=== PATIENT | male | born 1980 | race Hispanic/Latino ===

== ENCOUNTER 2017-06-27 20:08 | Emergency (ER) | payer OTHER, SELFPAY ==
[~2017-06-27 20:08] MED LIST: ISOVUE-370 76%-LOCM 1 ML ONE
[2017-06-27 20:30] LABS: #Basophils 0.1 thou/uL (0.0-0.2); #Eosinphils 0.1 thou/uL (0.0-0.7); #Lymphocytes 2.6 thou/uL (1.20-3.40); #Monocytes 0.3 thou/uL (0.11-0.59); #Neutrophils 4.8 thou/uL (1.40-6.50); %Basophils 1.1 % (0.0-1.0); %Eosinophils 1.8 % (0.0-10.0); %Lymphocytes 33.1 % (21.0-51.0); %Monocytes 4.1 % (0.0-10.0); Mean Platelet Volume 8.7 fL (7.4-10.4); Red Blood Cell (RBC) Count 4.91 mill/uL (4.70-6.10)
[2017-06-27] MEDS ORDERED: Ondansetron HCl/PF 4 MG/2 ML Vial ONE (20:36)
[2017-06-27 20:53] LABS: ALT (SGPT) 18 U/L (8-55); AST (SGOT) 17 U/L (5-34); Alkaline Phosphatase 87 U/L (40-150); Anion Gap 15 mmol/L (10-20); BUN (Urea Nitrogen) 15 mg/dL (8.9-20.6); Bilirubin, Total 0.5 mg/dL (0.2-1.2); Calc. Creatinine Clearance 0 mL/min (70-130); Carbon Dioxide 25 mmol/L (22-29); Chloride 103 mmol/L (98-107); Estimated GFR-MDRD Greater than 90; Globulin 3.7 g/dL (2.4-3.5); Protein, Total 8.5 g/dL (6.0-8.3)
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
[2017-06-27] MEDS ORDERED: Ketorolac Tromethamine 30 MG/ML VIAL ONE (22:57)
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
== END 2017-06-27 23:03 | disposition home or self-care (01) ==
LOC: ERS 20:08
DX: S80.812A Abrasion, left lower leg, initial encounter (principal); F17.210 Nicotine dependence, cigarettes, uncomplicated; V53.5XXA Driver of pick-up truck or van injured in collision with car, pick-up truck or van in traffic accident, initial encounter
CPT/HCPCS: 70450; 71260; 72125; 74177; 80053; 85025; 96374; J1885; J2405

== ENCOUNTER 2018-04-18 03:47 | Emergency (ER) | payer SELFPAY ==
[2018-04-18] MEDS ORDERED: Cyclobenzaprine 10 MG TAB ONE (04:41)
[2018-04-18] MEDS ORDERED: Ibuprofen 800 MG TAB ONE (04:41)
== END 2018-04-18 04:49 | disposition home or self-care (01) ==
LOC: ERS 03:47
DX: S16.1XXA Strain of muscle, fascia and tendon at neck level, initial encounter (principal); F17.210 Nicotine dependence, cigarettes, uncomplicated; V43.62XA Car passenger injured in collision with other type car in traffic accident, initial encounter
CPT/HCPCS: 99283